=== PATIENT | male | born 1970 | race Caucasian/White ===

== ENCOUNTER → 2017-05-15 | Outpatient (CLI) | payer OTHER ==
[2014-12-09 02:06] VITALS: BP 130/72
[~2017-05-15] MED LIST: CYCL5TAB PO; HYDR1TAB12 PO; IOHEXOL 180 MG/ML 10 ML VIAL. IT ONE; LIDOCAINE 1% Multi-Dose 20 ML VIAL. ID ONE; TEST200V3 IM
--- NOTE | 2017-05-15 14:14 | KCIC ---
Five-view lumbar spine dated 05/15/2017. No comparison available. Clinical indication: Left leg radiculopathy for 3 months. FINDINGS: AP, lateral and flexion-extension views obtained along with a coned-down view of lumbosacral junction. Transitional anatomy at the lumbosacral junction with sacralized L5 level. Slight retrolisthesis of L4 on L5 remains stable on flexion-extension views. Sagittal alignment is otherwise anatomic. Vertebral body heights are maintained. Mild hypertrophic change of the superior and inferior endplates throughout with mild arthrosis lower lumbar apophyseal joints. IMPRESSION: 1. 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 Please see above report for numbering scheme. 2. Mild multilevel spondylosis. 3. Mild retrolisthesis of L4 on L5 with no evidence of instability on the flexion-extension views. Electronically signed by: Ravi Shaw MD (05/15/2017 2:11 PM) [facility]
--- NOTE | 2017-05-15 14:44 | KCIC ---
CT LUMBAR SPINE W/CONTRAST, MYELOGRAPHY LUMBOSACRAL dated 05/15/2017 2:25 PM Indication: Back pain, left leg pain, weakness. Pain for 3 months. Comparison: No comparison is available. Technique: Potential benefits and risks of procedure were discussed with the patient and informed consent was obtained. Lower back was prepped and draped in a sterile fashion. After local anesthesia, a 25-gauge Ken needle was placed at the L3-L4 interspace and the thecal sac was accessed in a single pass using fluoroscopic guidance and a right lateral approach. After return of clear appearing CSF, 12 cc Omnipaque 180 contrast material was injected and the distal canal and the needle was removed. Hemostasis was obtained at the puncture site and a dry sterile dressing was applied. The patient tolerated procedure well. No immediate complication. Fluoroscopic imaging was performed of the patient was then sent to the CT suite for further imaging. Patient was observed briefly following the CT prior to discharge. Postprocedural care instructions were provided. 1 minute 58 seconds fluoroscopic time used. 7 images. One or more of the following individualized dose reduction techniques were utilized for this examination: 1. Automated exposure control 2. Adjustment of the mA and/or kV according to patient size 3. Use of iterative reconstruction technique Findings myelogram: AP, bilateral oblique, lateral and flexion-extension lateral views were obtained. 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 There is mild anterior extradural defects at L2-L3, L3-L4 and L4-L5. No complete mammographic block. Slight retrolisthesis of L4 on L5 which remains stable on flexion-extension imaging. There is mild blunting of the bilateral nerve root sleeves at the L4-L5 level. Findings CT myelogram: Images were acquired from T12 to the sacrum. There is transitional anatomy at the lumbosacral with a sacralized L5 segment. Using this numbering scheme, there is a rudimentary disc at L5-S1 and the conus tip appears to terminate at the lower T12 level. Slight retrolisthesis of L4 on L5. Sagittal alignment is otherwise anatomic. Vertebral body heights are maintained. Minimal hypertrophic changes of the endplates and lower lumbar apophyseal joints. At L2-L3, minimal broad-based posterior bulge. Central canal and foramen are adequate. At L3-L4, mild broad-based posterior bulge with mild hypertrophic change of the facet joints/ligament flavum. Prominent posterior epidural fat. Central canal is adequate. Bilateral foramen are patent. At L4-L5, there is slight retrolisthesis with mild broad-based posterior bulge and superimposed small left central/subarticular protrusion. Protruding disc appears to abut and slightly displace the central left L5 nerve root. There is mild hypertrophic change of the facet joints. Mild left lateral recess stenosis and mild proximal left foraminal stenosis. The right foramen is also mildly narrowed. Central canal is adequate. At L5-S1, no significant posterior bulge. Central canal and foramen are adequate. Images of retroperitoneum show no significant abnormality. IMPRESSION: 1. 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 Please see above report for numbering scheme. 2. Broad-based bulge and superimposed small left central/subarticular disc extrusion at L4-L5.. This appears to abut and slightly displace the central left L5 nerve root, possibly related to patient's radicular symptoms. Recommend clinical correlation. 3. Milder spondylotic changes at the remaining levels with no evidence of neural compression. Please see above report for full details. Electronically signed by: Ravi Shaw MD (05/15/2017 2:40 PM) [id number]
== END | disposition home or self-care (01) ==
LOC: KCIC 12:31
PROVIDERS: ATTEND Neurological Surgery
DX: M51.16 Intervertebral disc disorders with radiculopathy, lumbar region (principal); M47.896 Other spondylosis, lumbar region; R53.1 Weakness
CPT/HCPCS: 72110; 72132; 72265